=== PATIENT | male | born 1955 | race Caucasian/White ===

== ENCOUNTER → 2020-05-17 | Day surgery (SDC) | payer MEDICARE, OTHER ==
--- NOTE | 2020-05-12 14:32 | Diagnostic Imaging Report ---
EXAMINATION: CHEST 2 VIEWS INDICATION: Pre-operative COMPARISON: None FINDINGS: LINES/TUBES:None LUNGS:The lungs are hyperinflated. No focal consolidation or pulmonary edema. PLEURA:No pleural effusion or pneumothorax. MEDIASTINUM:The cardiomediastinal silhouette appears normal in size and shape. BONES/SOFT TISSUES:No acute osseous injury. ABDOMEN:No free air under the diaphragm. IMPRESSION: Hyperinflated lungs. No focal pneumonia or pulmonary edema. Signed by: Chapis Torres MD on 05/12/2020 2:29 PM
[2020-05-12 14:33] LABS: BASOPHILS # (AUTO) 0.1 (0.0-0.1); BASOPHILS % 0.8 % (0.0-1.0); EOSINOPHILS # (AUTO) 0.4 (0.0-0.4); EOSINOPHILS % 3.1 % (0.0-6.0); HEMATOCRIT 41.7 % (38.2-49.6); HEMOGLOBIN 14.1 g/dL (14.0-18.0); LYMPHOCYTES # (AUTO) 4.1 (1.0-3.2); LYMPHOCYTES % 36.8 % (18.0-39.1); MEAN CORPUSCULAR HEMOGLOBIN 31.4 pg (28-32); MEAN CORPUSCULAR HGB CONC 33.8 g/dL (31-35); MEAN CORPUSCULAR VOLUME 92.9 fL (81-99); MONOCYTES # (AUTO) 1.1 (0.2-0.8); MONOCYTES % 9.4 % (4.4-11.3); NEUTROPHILS # (AUTO) 5.5 (2.1-6.9); NEUTROPHILS % 49.5 % (38.7-80.0); PLATELET COUNT 289 x10e3/uL (140-360); RED BLOOD COUNT 4.49 x10e6/uL (4.3-5.7); RED CELL DISTRIBUTION WIDTH 12.8 % (11.7-14.4)
[2020-05-12 14:50] LABS: ANION GAP 11.1 mmol/L (8-16); BLOOD UREA NITROGEN 14 mg/dL (7-26); BUN/CREATININE RATIO 17 (6-25); CALCIUM 9.5 mg/dL (8.4-10.2); CARBON DIOXIDE 26 mmol/L (22-29); CHLORIDE 106 mmol/L (98-107); CREATININE, SERUM 0.82 mg/dL (0.72-1.25); EST GLOMERULAR FILTRATION RATE > 60 ML/MIN (60-); GLUCOSE 80 mg/dL (74-118); POTASSIUM 4.1 mmol/L (3.5-5.1); SODIUM 139 mmol/L (136-145)
[~2020-05-17] MED LIST: B&O 60MG R/S 60 MG SUPP PR ONE; CEFTRIAXONE SOD 1 GM/NS 50 ML 50 ML IV ONE; FLOMAX0.4 MG PO; GENTAMICIN 80MG/NS 100 ML 200 ML IV ONE; IOPAMIDOL 300MG/ML 50ML INFUS..BTL IV ONE; LIDOCAINE HCL 2% LOCAL INJ 5 ML SDV VIAL INJ ONE; MIDAZOLAM HCL 2 MG/2 ML VIAL ONE; MIRTAZAPINE45 MG PO; ONDANSETRON HCL INJ 2MG/ML 2ML 2 MG/ML VIAL ONE; PROPOFOL IV EMULSION 10 MG/ML 20 ML VIAL ONE; SEVOFLURANE INHAL SOLN 250 ML PEN BTL ONE
[2020-05-17 09:15] VITALS: BP 122/83
--- NOTE | 2020-06-19 05:56 | Operative Report ---
DATE OF PROCEDURE: 05/17/2020 SURGEON: Siddharth Ramon MD PREOPERATIVE DIAGNOSES: 1. Obstructive benign prostatic hyperplasia. 2. Urinary tract infections. POSTOPERATIVE DIAGNOSES: 1. Obstructive benign prostatic hyperplasia. 2. Urinary tract infections. OPERATION PERFORMED: 1. Cystourethroscopy with bilateral ureteral catheterization and retrograde ureteropyelography (separate procedure performed for the urinary tract infections). 2. Interpretation of retrograde ureteropyelography. 3. Supervision of fluoroscopy, no radiologist present. 4. Cystourethroscopy with transurethral implantation of 4 UroLift implants. ANESTHESIA: General. COMPLICATIONS: None. CLINICAL SUMMARY: Manjit Iverson is a 64-year-old man with obstructive BPH. He is on Flomax b.i.d. and has persistent symptomatology. He desires more definitive management. He is aware of the risks of bleeding, infection, injury to adjacent structures, need for additional procedures and elected to proceed. PROCEDURE IN DETAIL: Informed consent was verified. Manjit Iverson was properly identified, taken to the operating room, placed on the cystoscopy table in supine position. Anesthesia was uneventfully begun. The patient was then carefully and gently repositioned in the dorsal lithotomy position with all pressure points well padded. His genitalia were prepared and draped in usual sterile fashion. The cystoscope sheath with a visual obturator in place, was atraumatically inserted. The patient's urethra was guided unremarkable urethra, through the normal sphincteric region, through the prostate bed, which was significant for mostly bilobar prostatic hypertrophy with kissing lateral lobes and an elevated median bar. We entered the patient's bladder. Panendoscopy revealed grade 1-2 trabeculations with a laterally displaced right ureteral orifice. An 8-Z[place] catheter was used to cannulate each ureter and retrograde ureteral pyelograms were performed. Interpretation of retrograde ureteropyelography contrast was instilled in retrograde fashion bilaterally. There were no tumors, no stones, and no diverticula. Unobstructed drainage was observed bilaterally fluoroscopically. 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 The patient's bladder was drained. The UroLift cystoscope was atraumatically placed with the visual obturator. We then deployed 4 UroLift implants, 2 were placed anterolaterally, 1.5 cm distal to the bladder neck and 2 were placed anterolaterally at the level of the verumontanum, this resulted in a continuous anterior channel, which was open. The patient's bladder was drained. Cystoscope was withdrawn. We examined the patient carefully on right greater than left upper pole large spermatoceles versus hydroceles. A belladonna and opium suppository was placed revealing a 40 g prostate that is smooth, nonfluctuant without any nodules. The patient was then uneventfully reversed from anesthesia and taken to recovery room in stable condition. There were no complications of the procedure. He tolerated the procedure well. We will follow the patient up in the office for uroflowmetry and bladder ultrasonography, of course, ongoing urological followup is a must. We will also follow the patient on a long-term basis for his partial right ureteral duplication as well as right greater than left large upper pole spermatoceles versus hydroceles. Siddharth MD Yenny [place]/MODL /[id number] cc: Cecile Armando MD
== END | disposition home or self-care (01) ==
LOC: OR 06:02
PROVIDERS: ATTEND Urology
DX: N40.1 Benign prostatic hyperplasia with lower urinary tract symptoms (principal); N39.41 Urge incontinence; R39.14 Feeling of incomplete bladder emptying; R35.1 Nocturia; N39.0 Urinary tract infection, site not specified; N43.40 Spermatocele of epididymis, unspecified; N43.3 Hydrocele, unspecified; F17.200 Nicotine dependence, unspecified, uncomplicated; Z11.59 Encounter for screening for other viral diseases; Z01.810 Encounter for preprocedural cardiovascular examination; Z01.812 Encounter for preprocedural laboratory examination; Z01.818 Encounter for other preprocedural examination
CPT/HCPCS: 52005; C9740; 36415; 71046; 74420; 80048; 85025; 93005; C1758; J0696; J1580; J2001; J2250; J2405; L8699; U0002